=== PATIENT | male | born 1985 ===

== ENCOUNTER 2017-11-22 21:37 | Emergency (ER) | payer SELFPAY ==
[2017-11-22 21:45] VITALS: BP 131/77; PULSE 96; RESP 20; TEMP 97.8; O2SAT 100
--- NOTE | 2017-11-22 21:45 | C.PDOC ---
Time Seen by Provider: 11/22/17 21:45 Chief Complaint (Nursing): Substance Abuse Past Medical History Vital Signs: Last Vital Signs Temp 97.8 F 11/22/17 21:42 Pulse 96 H 11/22/17 21:42 Resp 20 11/22/17 21:42 BP 131/77 11/22/17 21:42 Pulse Ox 100 11/22/17 21:42 Surgical History: Appendectomy - Social History Hx Alcohol Use: Yes Hx Substance Use: No - Immunization History Hx Tetanus Toxoid Vaccination: No Hx Influenza Vaccination: No Hx Pneumococcal Vaccination: No ED Course And Treatment O2 Sat by Pulse Oximetry: 100 Disposition Counseled Patient/Family Regarding: Studies Performed, Diagnosis - Disposition Disposition Time: 21:45
== END 2017-11-22 21:45 | disposition left against medical advice (07) ==
LOC: C.ER 21:37
DX: Z02.89 Encounter for other administrative examinations (principal); F19.10 Other psychoactive substance abuse, uncomplicated